=== PATIENT | male | born 1965 | race Caucasian/White ===

== ENCOUNTER 2017-05-02 12:34 | Emergency (ER) | payer MEDICARE, MEDICAID ==
[2017-05-02 14:22] LABS: BASOPHILS 0.1 % (0-2); EOSINOPHILS 0.5 % (0-7); HEMATOCRIT 49.9 % (42.0-54.0); HEMOGLOBIN 17.8 g/dL (13.5-17.5); IMMATURE GRANULOCYTES 1.7 % (0-5); LYMPHOCYTES 5.2 % (15-50); MCHC 35.7 g/dL (31.0-37.0); MCV 95.4 fL (80.0-100.0); MEAN PLATELET VOLUME 10.5 fL (7.4-10.4); MONOCYTES 10.7 % (2-11); NEUTROPHILS 81.8 % (40-80); PLATELET COUNT 182 10x3/uL (130-400); RBC 5.23 10x6/uL (4.20-6.10); RDW 12.7 % (11.5-14.5); WBC 13.2 10x3/uL (4.8-10.8)
== END 2017-05-02 14:51 | disposition left against medical advice (07) ==
LOC: D.ER 12:34
PROVIDERS: Emergency Medicine
DX: R33.9 Retention of urine, unspecified (principal)